=== PATIENT | female | born 1995 | race Caucasian/White ===

== ENCOUNTER 2018-06-11 15:31 | Emergency (ER) | payer OTHER ==
[2018-06-11] MEDS: IBUPROFEN 600 MG TAB PO (16:16)
== END 2018-06-11 17:59 | disposition home or self-care (01) ==
LOC: FTE 15:31
DX: S32.2XXA Fracture of coccyx, initial encounter for closed fracture (principal); R40.2412 Glasgow coma scale score 13-15, at arrival to emergency department; W01.0XXA Fall on same level from slipping, tripping and stumbling without subsequent striking against object, initial encounter; Y92.9 Unspecified place or not applicable
CPT/HCPCS: 72220; 81025; 99283-25